=== PATIENT | female | born 1995 | race African-American/Black ===

== ENCOUNTER 2016-10-11 07:04 | Emergency (ER) | payer MEDICAID ==
[~2016-10-11] VITALS: Ht 167.6 cm; Wt 62.0 kg
[2016-10-11 09:28] LABS: GLUCOSE URINE NEGATIVE (NEGATIVE); KETONES URINE 2+ (NEGATIVE); LEUKOCYTE ESTERASE URINE 1+ (NEGATIVE); NITRITE URINE POSITIVE (NEGATIVE); OCCULT BLOOD URINE 3+ (NEGATIVE); PH URINE 5.5 (4.5-8.0); PROTEIN URINE 2+ (NEGATIVE); SPECIFIC GRAVITY URINE 1.031 (1.005-1.030)
[2016-10-11 09:36] LABS: CLARITY URINE CLOUDY (CLEAR); COLOR URINE BLOODY (YELLOW)
[2016-10-11] MEDS: DICYCLOMINE 10 MG/5 ML ORAL SYR PO STA (09:44)
[2016-10-11 09:45] LABS: BASOPHILS % 0.7 % (0.0-2.0); HEMOGLOBIN. 12.9 g/dL (12.0-16.0); LYMPHOCYTES % 32.6 % (20.0-50.0); MEAN CORPUSCULAR HEMOGLOBIN 27.1 pg (28.0-32.0); MEAN CORPUSCULAR VOLUME 81.8 fL (81.0-99.0); MEAN PLATELET VOLUME 8.9 fl (7.4-10.4); NEUTROPHILS % 54.7 % (40.0-76.0); PLATELET 273 x1000/uL (130-400); RED BLOOD CELL COUNT 4.77 mill/uL (4.2-5.4); RED CELL DISTRIBUTION WIDTH 13.3 % (11.6-14.6)
[2016-10-11] MEDS: VISCOUS LIDOCAINE 2% 15 ML UDC PO STA (09:45)
[2016-10-11] MEDS: ONDANSETRON 4MG ODT PO STA (09:45)
[2016-10-11] MEDS: MAGNESIUM/ALUMINUM HYDROXIDE/SIMETHICONE 30ML UDC PO STA (09:45)
[2016-10-11] MEDS: ACETAMINOPHEN 325MG TABLET PO ONE (09:45)
[2016-10-11 09:48] LABS: *AMPHETAMINES SCREEN URINE NEGATIVE (NEGATIVE); *BARBITURATES SCREEN URINE NEGATIVE (NEGATIVE); *BENZODIAZEPINES SCREEN URINE NEGATIVE (NEGATIVE); *COCAINE SCREEN URINE NEGATIVE (NEGATIVE); METHADONE URINE SCREEN NEGATIVE (NEGATIVE); OPIATES URINE SCREEN NEGATIVE (NEGATIVE); PHENCYCLIDINE URINE SCREEN NEGATIVE (NEGATIVE)
[2016-10-11 09:53] LABS: INR 1.1; PROTHROMBIN TIME 11.9 sec
[2016-10-11 09:57] LABS: CANNABINOID URINE SCREEN PRESUMTIVE POSITIVE (NEGATIVE)
[2016-10-11 09:58] LABS: CARBON DIOXIDE 26 mEq/L (21-32); CHLORIDE 107 mEq/L (98-107)
[2016-10-11 10:06] LABS: HCG SCREEN NEGATIVE
[2016-10-11 10:40] VITALS: BP 122/78
[2016-10-11] MEDS: CEFTRIAXONE SODIUM 250 MG/VIAL IM ONE (11:22)
[2016-10-11] MEDS: AZITHROMYCIN 500 MG TABLET PO ONE (11:22)
[2016-10-11] MEDS: LIDOCAINE HCL 1% 20ML VIAL (Pyxis) INJ INFIL ONE (11:22)
[2016-10-11] MEDS: METRONIDAZOLE 500MG TABLET PO ONE (11:53)
[2016-10-13 07:15] LABS: CHLAMYDIA TRACHOMATIS NAA Negative (Negative); NEISSERIA GONORRHOEAE NAA Negative (Negative)
== END 2016-10-11 11:55 | disposition home or self-care (01) ==
LOC: ER 07:04
DX: N76.0 Acute vaginitis (principal); N93.9 Abnormal uterine and vaginal bleeding, unspecified; F12.10 Cannabis abuse, uncomplicated; R10.84 Generalized abdominal pain; R11.0 Nausea
CPT/HCPCS: 36415; 80053; 80305; 81001; 84703; 85025; 85610; 87210; 87491; 87591; 96372; 99284; J0696; J3490; Q0162; Z7610

== ENCOUNTER 2016-11-01 01:12 | Emergency (ER) | payer MEDICAID ==
[~2016-11-01] VITALS: Ht 167.6 cm; Wt 77.0 kg
[2016-11-01 06:40] VITALS: BP 127/60
== END 2016-11-01 06:41 | disposition home or self-care (01) ==
LOC: ER 01:12
DX: S80.862A Insect bite (nonvenomous), left lower leg, initial encounter (principal); J45.909 Unspecified asthma, uncomplicated; W57.XXXA Bitten or stung by nonvenomous insect and other nonvenomous arthropods, initial encounter; Y93.89 Activity, other specified; Y92.89 Other specified places as the place of occurrence of the external cause; Y99.8 Other external cause status
CPT/HCPCS: 99283

== ENCOUNTER 2017-03-09 15:58 | Emergency (ER) | payer MEDICAID ==
[~2017-03-09] VITALS: Ht 167.6 cm; Wt 82.0 kg
[2017-03-10 03:15] VITALS: BP 124/81
[2017-03-10] MEDS ORDERED: IBUPROFEN 800MG TABLET PO ONE (03:30)
== END 2017-03-10 04:04 | disposition home or self-care (01) ==
LOC: ER 16:13
DX: H66.91 Otitis media, unspecified, right ear (principal); J45.909 Unspecified asthma, uncomplicated
CPT/HCPCS: 81025; 99283; Z7610

== ENCOUNTER 2019-03-27 10:11 | Emergency (ER) | payer MEDICAID ==
[~2019-03-27] VITALS: Ht 167.6 cm; Wt 88.0 kg
[2019-03-27 11:47] LABS: BASOPHILS % 0.7 % (0.0-2.0); EOSINOPHILS % 1.6 % (0.0-5.0); HEMATOCRIT. 39.8 % (36.0-48.0); HEMOGLOBIN. 13.3 g/dL (12.0-16.0); LYMPHOCYTES % 25.5 % (20.0-50.0); MEAN CORPUSCULAR HEMOGLOBIN 26.9 pg (28.0-32.0); MEAN CORPUSCULAR VOLUME 80.7 fL (81.0-99.0); MEAN PLATELET VOLUME 9.2 fl (7.4-10.4); MONOCYTES % 7.8 % (2.0-8.0); NEUTROPHILS % 64.4 % (40.0-76.0); PLATELET 275 x1000/uL (130-400); RED BLOOD CELL COUNT 4.93 mill/uL (4.2-5.4); RED CELL DISTRIBUTION WIDTH 14.3 % (11.6-14.6)
[2019-03-27 11:51] LABS: CHLORIDE 108 mEq/L (98-107)
[2019-03-27 12:01] LABS: B-HCG QUANTITATIVE 590 mIU/mL (<3)
[2019-03-27 12:50] LABS: CLARITY URINE CLOUDY (CLEAR); COLOR URINE ORANGE (YELLOW); KETONES URINE NEGATIVE (NEGATIVE); LEUKOCYTE ESTERASE URINE TRACE (NEGATIVE); NITRITE URINE NEGATIVE (NEGATIVE); OCCULT BLOOD URINE 3+ (NEGATIVE); PH URINE 8.5 (4.5-8.0); PROTEIN URINE 1+ (NEGATIVE); SPECIFIC GRAVITY URINE 1.009 (1.005-1.030)
[2019-03-27 16:30] VITALS: BP 121/87
== END 2019-03-27 16:35 | disposition home or self-care (01) ==
LOC: ER 10:11
DX: O00.90 Unspecified ectopic pregnancy without intrauterine pregnancy (principal); O99.511 Diseases of the respiratory system complicating pregnancy, first trimester; J45.909 Unspecified asthma, uncomplicated; Z3A.01 Less than 8 weeks gestation of pregnancy; Z91.018 Allergy to other foods
CPT/HCPCS: 36415; 76801; 80048; 80076; 81003; 81025; 84702; 85025; 86850; 86900; 99284

== ENCOUNTER 2019-03-28 13:54 | Emergency (ER) | payer MEDICAID ==
[~2019-03-28] VITALS: Ht 167.6 cm; Wt 90.0 kg
[2019-03-28] MEDS ORDERED: SODIUM CHLORIDE 0.9% 1,000 ML IV ONE (21:33)
[2019-03-28] MEDS ORDERED: METHOTREXATE SODIUM/PF 50 MG/2 ML VIAL IM NR (21:45)
[2019-03-28] MEDS ORDERED: MORPHINE SULFATE 4 MG/ML CPJ (NOT FOR IM USE) IV ONE (21:45)
[2019-03-28] MEDS ORDERED: ONDANSETRON HCL 4MG/2ML INJ IV ONE (21:45)
[2019-03-28] MEDS ORDERED: METHOTREXATE SODIUM/PF 50 MG/2 ML VIAL IM ONE (21:45)
[2019-03-28 22:42] LABS: BASOPHILS % 0.8 % (0.0-2.0); EOSINOPHILS % 1.7 % (0.0-5.0); HEMATOCRIT. 40.9 % (36.0-48.0); HEMOGLOBIN. 13.5 g/dL (12.0-16.0); LYMPHOCYTES % 28.3 % (20.0-50.0); MEAN CORPUSCULAR HEMOGLOBIN 26.8 pg (28.0-32.0); MEAN PLATELET VOLUME 9.5 fl (7.4-10.4); MONOCYTES % 8.8 % (2.0-8.0); NEUTROPHILS % 60.4 % (40.0-76.0); PLATELET 285 x1000/uL (130-400); RED BLOOD CELL COUNT 5.05 mill/uL (4.2-5.4); RED CELL DISTRIBUTION WIDTH 14.2 % (11.6-14.6)
[2019-03-28 22:43] LABS: CHLORIDE 110 mEq/L (98-107)
[2019-03-29 01:20] VITALS: BP 120/74
== END 2019-03-29 01:22 | disposition home or self-care (01) ==
LOC: ER 13:54
DX: O00.90 Unspecified ectopic pregnancy without intrauterine pregnancy (principal); N93.9 Abnormal uterine and vaginal bleeding, unspecified; J45.909 Unspecified asthma, uncomplicated; Z91.018 Allergy to other foods
CPT/HCPCS: 36415; 80053; 81025; 85025; 86850; 86900; 86901; 96374; 96375; 99283; J2270; J2405; J7030; J9260; Z7610

== ENCOUNTER 2020-10-15 16:19 | Emergency (ER) | payer MEDICAID ==
[~2020-10-15] VITALS: Ht 167.6 cm; Wt 92.0 kg
[~2020-10-15 16:19] MED LIST: BENZ1LOZ60 MT; IBUP-2029 MT
[2020-10-15 16:31] VITALS: BP 134/81
== END 2020-10-15 18:45 | disposition left against medical advice (07) ==
LOC: ER 16:19
DX: O26.851 Spotting complicating pregnancy, first trimester (principal); O26.891 Other specified pregnancy related conditions, first trimester; J45.909 Unspecified asthma, uncomplicated; O99.321 Drug use complicating pregnancy, first trimester; F12.90 Cannabis use, unspecified, uncomplicated; Z3A.01 Less than 8 weeks gestation of pregnancy
CPT/HCPCS: 81025; 99282

== ENCOUNTER 2021-06-14 10:03 | Emergency (ER) | payer MEDICAID ==
[~2021-06-14] VITALS: Ht 167.6 cm; Wt 73.0 kg
[2021-06-14] MEDS ORDERED: ONDANSETRON HCL 4MG/2ML INJ IV STA (10:26)
[2021-06-14] MEDS ORDERED: SODIUM CHLORIDE 0.9% 1,000 ML IV ONE (10:30)
[2021-06-14 11:10] LABS: BASOPHILS % 0.4 % (0.0-2.0); EOSINOPHILS % 0.8 % (0.0-5.0); HEMATOCRIT. 39.3 % (36.0-48.0); HEMOGLOBIN. 12.9 g/dL (12.0-16.0); LYMPHOCYTES % 22.1 % (20.0-50.0); MEAN CORPUSCULAR HEMOGLOBIN 26.6 pg (28.0-32.0); MEAN CORPUSCULAR VOLUME 80.6 fL (81.0-99.0); MONOCYTES % 7.6 % (2.0-8.0); NEUTROPHILS % 69.1 % (40.0-76.0); PLATELET 270 x1000/uL (130-400); RED BLOOD CELL COUNT 4.87 mill/uL (4.2-5.4); RED CELL DISTRIBUTION WIDTH 14.2 % (11.6-14.6)
[2021-06-14 11:17] LABS: CHLORIDE 110 mEq/L (98-107)
[2021-06-14 11:24] LABS: ETHANOL BLOOD < 10 mg/dL; HCG SCREEN NEGATIVE
[2021-06-14 12:10] LABS: CLARITY URINE CLOUDY (CLEAR); COLOR URINE YELLOW (YELLOW); KETONES URINE 2+ (NEGATIVE); LEUKOCYTE ESTERASE URINE 2+ (NEGATIVE); NITRITE URINE POSITIVE (NEGATIVE); OCCULT BLOOD URINE NEGATIVE (NEGATIVE); PROTEIN URINE NEGATIVE (NEGATIVE); SPECIFIC GRAVITY URINE 1.025 (1.005-1.030); UROBILINOGEN URINE 0.2 E.U./dL (0.2-1.0)
[2021-06-14] MEDS ORDERED: CEPHALEXIN 250MG CAPSULE PO ONE (12:30)
[2021-06-14 12:41] LABS: *AMPHETAMINES SCREEN URINE NEGATIVE (NEGATIVE)
[2021-06-14 12:42] LABS: *BARBITURATES SCREEN URINE NEGATIVE (NEGATIVE); *BENZODIAZEPINES SCREEN URINE NEGATIVE (NEGATIVE); *COCAINE SCREEN URINE NEGATIVE (NEGATIVE); METHADONE URINE SCREEN NEGATIVE (NEGATIVE); PHENCYCLIDINE URINE SCREEN NEGATIVE (NEGATIVE)
[2021-06-14 12:43] LABS: OPIATES URINE SCREEN NEGATIVE (NEGATIVE)
[2021-06-14 12:53] LABS: CANNABINOID URINE SCREEN PRESUMTIVE POSITIVE (NEGATIVE)
[2021-06-14 14:00] VITALS: BP 120/70
[2021-06-14] MEDS ORDERED: PANTOPRAZOLE SODIUM 40 MG/VIAL IV ONE (14:15)
[2021-06-14] MEDS ORDERED: CEFTRIAXONE 1 G PREMIX 50 ML IV ONE (14:15)
[2021-06-14] MEDS ORDERED: METOCLOPRAMIDE HCL 10MG/2ML VIAL IV ONE (14:15)
== END 2021-06-14 15:50 | disposition left against medical advice (07) ==
LOC: ER 10:03
DX: N39.0 Urinary tract infection, site not specified (principal); R11.10 Vomiting, unspecified; J45.909 Unspecified asthma, uncomplicated; G40.909 Epilepsy, unspecified, not intractable, without status epilepticus; F12.10 Cannabis abuse, uncomplicated
CPT/HCPCS: 36415; 80053; 80305; 80320; 81003; 83690; 84703; 85025; 96361; 96365; 96375; 99284; C9113; J0696; J2405; J2765; J7030; G0480

== ENCOUNTER 2023-05-07 22:17 | Emergency (ER) | payer MEDICAID, OTHER ==
[~2023-05-07] VITALS: Ht 167.6 cm; Wt 69.0 kg
[~2023-05-07 22:17] MED LIST changes: -BENZ1LOZ60 MT; +BENZ1LOZ73 MT
[2023-05-07 22:32] VITALS: O2SAT 99
[2023-05-07 23:41] LABS: BASOPHILS % 0.6 % (0.0-2.0); EOSINOPHILS % 3.6 % (0.0-5.0); HEMATOCRIT. 33.3 % (36.0-48.0); HEMOGLOBIN. 11.3 g/dL (12.0-16.0); LYMPHOCYTES % 36.8 % (20.0-50.0); MEAN CORPUSCULAR HGB CONC 33.9 g/dL (31.0-37.0); MEAN CORPUSCULAR VOLUME 82.6 fL (81.0-99.0); MEAN PLATELET VOLUME 9.1 fl (7.4-10.4); MONOCYTES % 12.4 % (2.0-8.0); NEUTROPHILS % 46.6 % (40.0-76.0); PLATELET 242 x1000/uL (130-400); RED BLOOD CELL COUNT 4.04 mill/uL (4.2-5.4); RED CELL DISTRIBUTION WIDTH 13.7 % (11.6-14.6); WHITE BLOOD COUNT 8.4 x1000/uL (4.5-11.0)
[2023-05-07 23:43] LABS: CALCIUM 8.5 mg/dL (8.7-10.4); CARBON DIOXIDE 24 mEq/L (21-32); CHLORIDE 110 mEq/L (98-107); CREATININE 0.7 mg/dL (0.6-1.0); GLUCOSE 101 mg/dL (70-105); POTASSIUM 3.4 mEq/L (3.5-5.1); SODIUM 138 mEq/L (136-145); UREA NITROGEN BLOOD 8 mg/dL (9-23)
[2023-05-08] MEDS ORDERED: IOHEXOL-350 100 ML BOTTLE ONE (01:07)
[2023-05-08 01:57] VITALS: BP 120/74; PULSE 52; RESP 12; TEMP 97.9
[2023-05-08] MEDS: ACETAMINOPHEN 325MG TABLET PO ONE (01:57)
[2023-05-08] MEDS: IBUPROFEN 600MG TABLET PO ONE (01:57)
== END 2023-05-08 02:00 | disposition home or self-care (01) ==
LOC: ER 22:17
DX: S00.83XA Contusion of other part of head, initial encounter (principal); M54.2 Cervicalgia; J45.909 Unspecified asthma, uncomplicated; F12.90 Cannabis use, unspecified, uncomplicated; Y08.89XA Assault by other specified means, initial encounter; Y93.89 Activity, other specified; Y92.89 Other specified places as the place of occurrence of the external cause; Y99.8 Other external cause status
CPT/HCPCS: 36415; 70486; 70498; 80048; 81025; 85025; 99285; Q9967